=== PATIENT | female | born 1990 | race Caucasian/White ===

== ENCOUNTER 2016-10-27 19:17 | Emergency (ER) | payer MEDICAID ==
--- NOTE | 2016-10-27 20:02 | ED Physician Chart ---
ED Chief Complaint/HPI - Patient Information Date Seen:: 10/27/16 Time Seen:: 19:57 Chief Complaint:: pelvic pain History of Present Illness:: x 2 wks w discomfort at pelvic. maybe some dysuria. no fever. no n/v/d. eating ok. has had some back pain x 2 wks...not severe. no trauma. no vag dc. no irreg vag bleeding. Allergies:: Allergies Allergy/AdvReac Type Severity Reaction Status Date / Time No Known Allergies Allergy Verified 10/27/16 19:47 Vitals:: Vital Signs - 8 hr 10/27/16 19:25 Temp 98.3 F HR 79 RR 18 BP 134/70 O2 Sat % 100 Historian:: Patient ED Review of Systems - Review of Systems General/Constitutional: No fever, No chills, No weight loss, No weakness, No diaphoresis, No edema, No loss of appetite Skin: No skin lesions, No rash, No bruising Head: No headache, No light-headedness Eyes: No loss of vision, No pain, No diplopia ENT: No earache, No nasal drainage, No sore throat, No tinnitus Neck: No neck pain, No swelling, No thyromegaly, No stiffness, No mass noted Cardio Vascular: No chest pain, No palpitations, No PND, No orthopnea, No edema Pulmonary: No SOB, No cough, No sputum, No wheezing GI: No nausea, No vomiting, No diarrhea, No pain, No melena, No hematochezia, No constipation, No hematemesis G/U: Dysuria (?), No dysuria, No frequency, No hematuria Respiratory Therapy Manager: No vaginal discharge, No abnormal vaginal bleed Musculoskeletal: No bone or joint pain, No back pain, No muscle pain Endocrine: No polyuria, No polydipsia Psychiatric: No prior psych history, No depression, No anxiety, No suicidal ideation Hematopoietic: No bruising, No lymphadenopathy Allergic/Immuno: No urticaria, No angioedema Neurological: No syncope, No focal symptoms, No weakness, No paresthesia, No headache, No seizure, No dizziness, No confusion, No vertigo ED Past Medical History - Past Medical History Past Medical History: No significant medical hx Social History: Non Smoker, Alcohol Medication: None Family Medical History - Family Member Mother History Unknown: Yes Ethnicity: Living Status: Still Living Hx Family Cancer: No Hx Family Coronary Artery Disease: No Hx Family Congestive Heart Failure: No Hx Family Hypertension: No Hx Family Stroke: No Hx Family Diabetes: No Hx Family Seizures: No Hx Family AIDS: No Hx Family HIV: No Hx Family COPD: No Hx Family Psychiatric Problems: No Hx Family Tuberculosis: No ED Physical Exam - Physical Examination General/Constitutional: Awake, Well-developed, well-nourished, Alert, No distress, GCS 15, Non-toxic appearing, Ambulatory Other Gen/Cons comments:: alert.ambulatory. nad. calm. wn/wh. no pallor. mmm. Head: Atraumatic Eyes: Lids, conjuctiva normal, PERRL, EOMI Skin: Nl inspection, No rash, No skin lesions, No ecchymosis, Well hydrated, No lymphadenopathy ENMT: External ears, nose nl, Nasal exam nl, Lips, teeth, gums nl Neck: Nontender, Full ROM w/o pain, No JVD, No nuchal rigidity, No bruit, No mass, No stridor Respiratory: Nl effort/Exclusion, Clear to Auscultation, No Wheeze/Rhonchi/Rales Cardio Vascular: RRR, No murmur, gallop, rubs, NL S1 S2 GI: No tenderness/rebounding/guarding, No organomegaly, No hernia, Normal BS's, Nondistended, No mass/bruits, No McBurney tenderness Other GI comments:: mild vague tndr over low pelvis/midline. no obturator or psoas sign. no masses. : No CVA tenderness Extremities: No tenderness or effusion, Full ROM, normal strength in all extremities, No edema, Normal digits & nails Neuro/Psych: Alert/oriented, DTR's symmetric, Normal sensory exam, Normal motor strength, Judgement/insight normal, Mood normal, Normal gait, No focal deficits Misc: normal gait, Normal back, No paraspinal tenderness ED Labs/Radiology/EKG Results - Lab Results Results: Laboratory Tests 10/27/16 10/27/16 10/27/16 19:45 19:45 20:07 WBC 11.0 H D RBC 4.41 Hgb 13.4 Hct 39.6 L MCV 89.7 MCH 30.3 MCHC Differential 33.8 RDW 12.7 Plt Count 227 MPV 8.8 Neutrophils % 66.7 Lymphocytes % 27.0 Monocytes % 4.7 Eosinophils % 1.5 Basophils % 0.1 Sodium Potassium Chloride Carbon Dioxide Anion Gap BUN Creatinine Est GFR ( Amer) Est GFR (Non-Af Amer) BUN/Creatinine Ratio Glucose Calcium Total Bilirubin AST ALT Alkaline Phosphatase Total Protein Albumin Globulin Albumin/Globulin Ratio Urine Source CLEAN C Urine Color YELLOW Urine Clarity CLEAR Urine pH 6.0 Ur Specific [place] 1.025 Urine Protein NEGATIVE Urine Glucose (UA) NEGATIVE Urine Ketones NEGATIVE Urine Blood NEGATIVE Urine Nitrate NEGATIVE Urine Bilirubin NEGATIVE Urine Urobilinogen 0.2 Ur Leukocyte Esterase TRACE H Urine RBC NONE SEEN Urine WBC 2-5 Ur Epithelial Cells NONE SEEN Urine Bacteria NONE SEEN Urine Test NEGATIVE 10/27/16 20:07 WBC RBC Hgb Hct MCV MCH MCHC Differential RDW Plt Count MPV Neutrophils % Lymphocytes % Monocytes % Eosinophils % Basophils % Sodium 135 L Potassium 4.1 Chloride 104 Carbon Dioxide 27.5 Anion Gap 7.6 BUN 14 Creatinine 0.7 Est GFR ( Amer) > 60.0 Est GFR (Non-Af Amer) > 60.0 BUN/Creatinine Ratio 20.0 Glucose 92 Calcium 9.1 Total Bilirubin 0.3 AST 18 ALT 24 Alkaline Phosphatase 50 Total Protein 7.1 Albumin 4.0 Globulin 3.1 Albumin/Globulin Ratio 1.3 Urine Source Urine Color Urine Clarity Urine pH Ur Specific [place] Urine Protein Urine Glucose (UA) Urine Ketones Urine Blood Urine Nitrate Urine Bilirubin Urine Urobilinogen Ur Leukocyte Esterase Urine RBC Urine WBC Ur Epithelial Cells Urine Bacteria Urine Test - Radiology Results Results: us pelvis- rt ovary cyst 3.4x3x2.9cm sz w septation. ? inclusion cyst in uterous. no free fluid. ED Septic Shock - . Is Septic Shock (SBP<90, OR Lactate>4 mmol\L) present?: No - <6hrs of presentation: Vital Signs: Vital Signs - 8 hr 10/27/16 19:25 Temp 98.3 F HR 79 RR 18 BP 134/70 O2 Sat % 100 ED Reassessment (Disposition) - Reassessment Reassessment:: results reviewed w pt. advise fu w pmd for rn resource nurse referral soon. may use tylenol/motrin for pain or ultracet for severe pain. rx ultracet no 15 return if very severe pain or else worse. rx macrobid for poss uti (evidence is not great but sx are concordant w poss uti ) Reassessment Condition:: Improved - Diagnosis Diagnosis:: 1 right ovarian cyst 2 uti - Aftercare/Follow up Instructions Aftercare/Follow-Up Instructions:: Counseled pt & family regarding lab results/ diagnosis & need follow up - Patient Disposition Discharge/Transfer:: Home Condition at Disposition:: Improved
[2016-10-27 20:18] LABS: % BASOPHILS 0.1 % (0.0-2.0); % EOSINOPHILS 1.5 % (0.0-5.0); % MONOCYTES 4.7 % (2.0-10.0); % NEUTROPHILS 66.7 % (40.0-80.0); HEMATOCRIT 39.6 % (41.0-60); HEMOGLOBIN 13.4 gm/dL (12-16); MEAN CELL VOLUME 89.7 fl (81-100); MEAN CORPUSCULAR HEMOGLOBIN 30.3 pg (27.0-31.0); MEAN CORPUSCULAR HGB CONC 33.8 pg (28.0-36.0); MEAN PLATELET VOLUME 8.8 fl; NEUTROPHILE ABSOLUTE 7.3 Th/cmm (1.8-8.0); PLATELET COUNT 227 Th/cmm (150-400); RED BLOOD COUNT 4.41 Mil/cmm (3.80-5.10); RED CELL DISTRIBUTION WIDTH 12.7 % (11.5-20.0)
[2016-10-27 20:22] LABS: URINE BILIRUBIN NEGATIVE (NEGATIVE); URINE BLOOD NEGATIVE (NEGATIVE); URINE GLUCOSE (UA) NEGATIVE (NEGATIVE); URINE KETONE NEGATIVE (NEGATIVE); URINE PROTEIN NEGATIVE (NEGATIVE); URINE UROBILINOGEN 0.2 E.U./dL (0.2 - 1.0)
[2016-10-27 20:30] LABS: SODIUM SERUM 135 mEq/L (136-145)
[2016-10-27 20:31] LABS: ALB/GLOB RATIO 1.3 (1.0-1.8); ALKALINE PHOSPHATASE 50 U/L (34-104); ANION GAP 7.6 (7.0-16.0); BILIRUBIN,TOTAL 0.3 mg/dL (0.3-1.0); BUN - UREA NITROGEN 14 mg/dL (7-25); CALCIUM SERUM 9.1 mg/dL (8.6-10.3); CARBON DIOXIDE 27.5 mEq/L (21.0-31.0); CHLORIDE 104 mEq/L (98-107); CREATININE - SERUM 0.7 mg/dL (0.6-1.2); GLUCOSE 92 mg/dL (70-105); POTASSIUM SERUM 4.1 mEq/L (3.5-5.1); SGOT 18 U/L (13-39); SGPT/ALT 24 U/L (7-52)
[2016-10-27 20:38] LABS: URINE COLOR YELLOW
[2016-10-27 20:41] LABS: URINE BACTERIA NONE SEEN /hpf (NONE SEEN); URINE EPITHELIAL CELLS NONE SEEN /lpf (FEW); URINE RBC NONE SEEN /hpf (0-5)
--- NOTE | 2016-10-28 11:01 | Diagnostic Imaging Report ---
Pelvic ultrasound HISTORY: Pain Transabdominal and transvaginal sonographic technique are utilized. Transabdominal images are limited due to lack of bladder distention. Suboptimal delineation of the uterus on transvaginal images. Complete uterine margins are not delineated. The right ovary measures 3.6 x 1.7 x 2.9 cm. This is associated with several cysts. The largest measures 3.4 x 3.0 x 2.9 cm. Internal septation noted. The left ovary measures 3.4 x 1.7 cm. In no abnormal masses. No free fluid in the pelvis. IMPRESSION: 1. Suboptimal/Limited exam particularly of the uterus and endometrium. 2. Septated right ovarian cystic lesion. A follow-up exam recommended for confirmation of a physiologic basis.
== END 2016-10-27 23:05 | disposition home or self-care (01) ==
LOC: ER 19:17
DX: N83.201 Unspecified ovarian cyst, right side (principal); N39.0 Urinary tract infection, site not specified
CPT/HCPCS: 36415-UA; 76856-TC; 80053-TC; 81001-TC; 81025-TC; 85025-TC

== ENCOUNTER 2016-12-06 16:13 | Emergency (ER) | payer MEDICAID ==
--- NOTE | 2016-12-06 16:34 | ED Physician Chart ---
ED Chief Complaint/HPI - Patient Information Date Seen:: 12/06/16 Time Seen:: 16:25 Chief Complaint:: Recurrent nausea/vomiting since about 7 am today. History of Present Illness:: Brought in by private auto for the above reason. Pt has had recurrent N/V since about 7 am today. Vomitus consists of gastric content. No hematemesis. Last BM at noon today that was loose but nonbloody. No melena or hematochezia. No lightheadedness. No abdominal pain. No fever. No recent travel, antibiotic use or ingestion of contaminated food or liquid. Allergies:: Allergies Allergy/AdvReac Type Severity Reaction Status Date / Time No Known Allergies Allergy Verified 12/06/16 16:14 Vitals:: Vital Signs - 8 hr 12/06/16 16:15 Temp 97.6 F HR 109 RR 16 BP 141/76 O2 Sat % 97 Historian:: Patient Family MD/PCP:: unknown LMP:: 11/22/16 Review:: Nurse's Note Reviewed ED Review of Systems - Review of Systems General/Constitutional: No fever, No weight loss, No weakness, No edema, No loss of appetite Skin: No rash, No bruising Head: No headache, No light-headedness Eyes: No loss of vision, No pain ENT: No earache, No nasal drainage, No sore throat Neck: No neck pain, No swelling, No thyromegaly, No stiffness, No mass noted Cardio Vascular: No chest pain, No palpitations, No edema Pulmonary: No SOB, No cough, No wheezing GI: Nausea, Vomiting, Diarrhea (?), No pain, No melena, No hematochezia, No constipation, No hematemesis G/U: No dysuria, No frequency, No hematuria 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: No vaginal discharge, No abnormal vaginal bleed Musculoskeletal: No bone or joint pain Endocrine: No polyuria, No polydipsia Psychiatric: No prior psych history Hematopoietic: No bruising, No lymphadenopathy Allergic/Immuno: No urticaria, No angioedema Neurological: No syncope, No focal symptoms, No weakness, No paresthesia, No headache, No dizziness, No confusion ED Past Medical History - Past Medical History Past Medical History: No significant medical hx Family History: None Social History: Non Smoker, No Alcohol, No Drug Use, Single, Employed, Other ( lives with her significant other) 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 Surgical 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: None Psychiatricy History: None Medication: None Family Medical History - Family Member Mother History Unknown: Yes Ethnicity: Living Status: Still Living Hx Family Cancer: No Hx Family Coronary Artery Disease: No Hx Family Congestive Heart Failure: No Hx Family Hypertension: No Hx Family Stroke: No Hx Family Diabetes: No Hx Family Seizures: No Hx Family AIDS: No Hx Family HIV: No Hx Family COPD: No Hx Family Psychiatric Problems: No Hx Family Tuberculosis: No ED Physical Exam - Physical Examination General/Constitutional: Awake, Well-developed, well-nourished, Alert, No distress, GCS 15, Non-toxic appearing Other Gen/Cons comments:: Breathes comfortably, speaks clearly, and interacts normally Head: Atraumatic Eyes: Lids, conjuctiva normal, PERRL, EOMI Skin: No rash, No ecchymosis, No lymphadenopathy ENMT: External ears, nose nl, Nasal exam nl, Lips, teeth, gums nl, Oropharynx nl Other ENMT comments:: Mucous membrane is slightly dry. Neck: Nontender, Full ROM w/o pain, No nuchal rigidity, No mass, No stridor Respiratory: Nl effort/Exclusion, Clear to Auscultation, No Wheeze/Rhonchi/Rales Cardio Vascular: RRR, No murmur, gallop, rubs GI: No tenderness/rebounding/guarding, No organomegaly, No hernia, Normal BS's, Nondistended, No mass/bruits, No McBurney tenderness Other GI comments:: Obese but soft. Extremities: No tenderness or effusion, Full ROM, normal strength in all extremities, No edema, Normal digits & nails Neuro/Psych: Alert/oriented (oriented x 3), Mood normal, No focal deficits ED Labs/Radiology/EKG Results - Lab Results Results: Laboratory Tests 12/06/16 12/06/16 12/06/16 16:50 16:50 16:52 WBC 10.7 RBC 4.73 Hgb 14.3 Hct 41.9 MCV 88.7 MCH 30.3 MCHC Differential 34.2 RDW 12.3 Plt Count 220 MPV 8.5 Neutrophils (Manual) 87 H Lymphocytes 8 L Monocytes 5 Platelet Estimate ADEQUATE Platelet Morphology NORMAL RBC Morph Micro Appear NORMAL PT INR PTT (Actin FS) Sodium Potassium Chloride Carbon Dioxide Anion Gap BUN Creatinine Est GFR ( Amer) Est GFR (Non-Af Amer) BUN/Creatinine Ratio Glucose Calcium Total Bilirubin AST ALT Alkaline Phosphatase Total Protein Albumin Globulin Albumin/Globulin Ratio Amylase Lipase Urine Source [place] Urine Color YELLOW Urine Clarity SLIGHTLY HAZY Urine pH 6.0 Ur Specific [place] 1.025 Urine Protein NEGATIVE Urine Glucose (UA) NEGATIVE Urine Ketones NEGATIVE Urine Blood NEGATIVE Urine Nitrate NEGATIVE Urine Bilirubin NEGATIVE Urine Urobilinogen 0.2 Ur Leukocyte Esterase SMALL H Urine RBC 0-2 Urine WBC 10-25 H Ur Epithelial Cells FEW Urine Bacteria 1+ H Urine Mucus FEW Urine Test NEGATIVE 12/06/16 12/06/16 16:52 16:52 WBC RBC Hgb Hct MCV MCH MCHC Differential RDW Plt Count MPV Neutrophils (Manual) Lymphocytes Monocytes Platelet Estimate Platelet Morphology RBC Morph Micro Appear PT 11.0 INR 1.06 PTT (Actin FS) 27.2 Sodium 134 L Potassium 4.3 Chloride 102 Carbon Dioxide 27.2 Anion Gap 9.1 BUN 14 Creatinine 0.7 Est GFR ( Amer) > 60.0 Est GFR (Non-Af Amer) > 60.0 BUN/Creatinine Ratio 20.0 Glucose 104 Calcium 9.1 Total Bilirubin 0.8 AST 17 ALT 18 Alkaline Phosphatase 57 Total Protein 7.2 Albumin 4.0 Globulin 3.2 Albumin/Globulin Ratio 1.3 Amylase 37 Lipase 9 L Urine Source Urine Color Urine Clarity Urine pH Ur Specific [place] Urine Protein Urine Glucose (UA) Urine Ketones Urine Blood Urine Nitrate Urine Bilirubin Urine Urobilinogen Ur Leukocyte Esterase Urine RBC Urine WBC Ur Epithelial Cells Urine Bacteria Urine Mucus Urine Test ED Septic Shock - . Is Septic Shock (SBP<90, OR Lactate>4 mmol\L) present?: No - <6hrs of presentation: Vital Signs: Vital Signs - 8 hr 12/06/16 16:15 Temp 97.6 F HR 109 RR 16 BP 141/76 O2 Sat % 97 ED Reassessment (Disposition) - Reassessment Reassessment:: 1800 Pt feels much better. No abdominal pain or discomfort. No N/V/D. Lab findings have been reviewed with pt. Pt requests to go home now and does not want further observation/management in hospital. Aftercare instructions have been given. Reassessment Condition:: Improved - Diagnosis Diagnosis:: Transient nausea/vomiting/diarrhea c/w viral gastroenteritis. Stable and improved. Urinary tract infection. Stable. - Aftercare/Follow up Instructions Aftercare/Follow-Up Instructions:: Refer to Discharge Instructions Notes:: Bedrest for today. Push oral fluid. Nausea/vomiting/diarrhea instructions given. Clear liquid diet for today. Advance diet as tolerated as directed starting tomorrow. F/U with Dr. Stoner or PCP of pt's choice in one day for recheck. Return to ER immediately if condition worsens or if any further questions/problems. Medication Prescribed:: Bactrim DS one tab po q12h for 7 days. D-14 R-0 - Patient Disposition Discharge/Transfer:: Home Time:: 18:05 Condition at Disposition:: Stable, Improved ED Discharge Plan - Patient Disposition Admit/Discharge/Transfer: PT DISCHARGED HOME Condition at Disposition: Improved Prescriptions: Sulfamethoxazole/TMP [Bactrim Ds] 1 tab PO Q12HR 7 Days #17 tab Instructions: Viral Gastroenteritis, Urinary Tract Infection, [id number] Forms: Work Release Form
[2016-12-06] MEDS ORDERED: Sodium Chloride 0.9% 1,000 ML IV ONE (16:42)
[2016-12-06 16:58] LABS: HEMATOCRIT 41.9 % (41.0-60); HEMOGLOBIN 14.3 gm/dL (12-16); MEAN CELL VOLUME 88.7 fl (81-100); MEAN CORPUSCULAR HEMOGLOBIN 30.3 pg (27.0-31.0); MEAN CORPUSCULAR HGB CONC 34.2 pg (28.0-36.0); MEAN PLATELET VOLUME 8.5 fl; NEUTROPHILE ABSOLUTE 9.7 Th/cmm (1.8-8.0); PLATELET COUNT 220 Th/cmm (150-400); RED BLOOD COUNT 4.73 Mil/cmm (3.80-5.10); RED CELL DISTRIBUTION WIDTH 12.3 % (11.5-20.0); WHITE BLOOD COUNT 10.7 Th/cmm (4.8-10.8)
[2016-12-06 17:14] LABS: URINE BILIRUBIN NEGATIVE (NEGATIVE); URINE BLOOD NEGATIVE (NEGATIVE); URINE GLUCOSE (UA) NEGATIVE (NEGATIVE); URINE KETONE NEGATIVE (NEGATIVE); URINE PROTEIN NEGATIVE (NEGATIVE); URINE UROBILINOGEN 0.2 E.U./dL (0.2 - 1.0)
[2016-12-06 17:16] LABS: INR 1.06 (0.5-1.4)
[2016-12-06 17:18] LABS: ALB/GLOB RATIO 1.3 (1.0-1.8); ALKALINE PHOSPHATASE 57 U/L (34-104); AMYLASE SERUM 37 U/L (29-103); ANION GAP 9.1 (7.0-16.0); BILIRUBIN,TOTAL 0.8 mg/dL (0.3-1.0); BUN - UREA NITROGEN 14 mg/dL (7-25); CALCIUM SERUM 9.1 mg/dL (8.6-10.3); CARBON DIOXIDE 27.2 mEq/L (21.0-31.0); CHLORIDE 102 mEq/L (98-107); CREATININE - SERUM 0.7 mg/dL (0.6-1.2); GLUCOSE 104 mg/dL (70-105); LIPASE 9 U/L (11-82); POTASSIUM SERUM 4.3 mEq/L (3.5-5.1); SGOT 17 U/L (13-39); SGPT/ALT 18 U/L (7-52); SODIUM SERUM 134 mEq/L (136-145)
[2016-12-06 17:27] LABS: URINE COLOR YELLOW
[2016-12-06 17:28] LABS: URINE BACTERIA 1+ /hpf (NONE SEEN); URINE EPITHELIAL CELLS FEW /lpf (FEW); URINE RBC 0-2 /hpf (0-5)
[2016-12-06 17:51] LABS: NEUTROPHILS 87 % (40-80); PLATELET ESTIMATE ADEQUATE (NORMAL); PLATELET MORPHOLOGY NORMAL (NORMAL)
== END 2016-12-06 18:36 | disposition home or self-care (01) ==
LOC: ER 16:13
DX: K52.9 Noninfective gastroenteritis and colitis, unspecified (principal); N39.0 Urinary tract infection, site not specified
CPT/HCPCS: 99285; 96361; 96374; 36415; 85007; 85027; 85610; 87086; 81001; 82150; 81025; 83690; 80053; J2405; J7030

== ENCOUNTER 2017-05-01 23:09 | Emergency (ER) | payer SELFPAY ==
--- NOTE | 2017-05-01 23:52 | ED Physician Chart ---
ED Chief Complaint/HPI - Patient Information Date Seen:: 05/01/17 Time Seen:: 23:41 Chief Complaint:: Vaginal bleeding History of Present Illness:: 26 yo female, , had irregular period lasting 5-7 days, averaging 3-4 pads a day. This morning, more vaginal bleeding occurred and 7 pads were used. Sexually active without being for 2 years. This is first month patient used a new OCPs starting 04/06/17 due to a right ovarian cyst for 2 years. The period started 2 days ago and gradually had more bleeding. The patient had never had this amount of vaginal bleeding before. She also had pelvic crampy pain which was new to her. Allergies:: Allergies Allergy/AdvReac Type Severity Reaction Status Date / Time No Known Allergies Allergy Verified 05/01/17 23:39 ED Past Medical History - Past Medical History Past Medical History: No significant medical hx Social History: Non Smoker, Alcohol, No Drug Use Surgical History: None Family Medical History - Family Member Mother History Unknown: Yes Ethnicity: Living Status: Still Living Hx Family Cancer: No Hx Family Coronary Artery Disease: No Hx Family Congestive Heart Failure: No Hx Family Hypertension: No Hx Family Stroke: No Hx Family Diabetes: No Hx Family Seizures: No Hx Family AIDS: No Hx Family HIV: No Hx Family COPD: No Hx Family Psychiatric Problems: No Hx Family Tuberculosis: No ED Assessment - Assessment General Assessment: Abnormal vaginal bleeding UTI Assessment/Comments:: CBC, CMP, PT/PTT Pelvic u/s Ibuprofen 600mg po x 1 Bactrim DS x 1 D/c home Advil 200mg 2 tabs po q6h x 3 days Bactrim DS bid x 3 days F/u Transformer Inspector or return to ER if symptoms worsen ED Septic Shock - . Is Septic Shock (SBP<90, OR Lactate>4 mmol\L) present?: No
[2017-05-02 00:14] LABS: % BASOPHILS 0.3 % (0.0-2.0); % LYMPHOCYTES 30.3 % (20.0-50.0); % NEUTROPHILS 60.4 % (40.0-80.0); EOSINOPHILE ABSOLUTE 0.2 Th/cmm (0.1-0.4); HEMATOCRIT 37.9 % (41.0-60); HEMOGLOBIN 12.6 gm/dL (12-16); LYMPHOCYTE ABSOLUTE 2.5 Th/cmm (1.5-3.0); MEAN CELL VOLUME 88.7 fl (81-100); MEAN CORPUSCULAR HEMOGLOBIN 29.5 pg (27.0-31.0); MEAN CORPUSCULAR HGB CONC 33.3 pg (28.0-36.0); MEAN PLATELET VOLUME 8.7 fl; MONOCYTE ABSOLUTE 0.6 Th/cmm (0.3-1.0); NEUTROPHILE ABSOLUTE 5.1 Th/cmm (1.8-8.0); PLATELET COUNT 243 Th/cmm (150-400); RED BLOOD COUNT 4.28 Mil/cmm (3.80-5.10); RED CELL DISTRIBUTION WIDTH 12.4 % (11.5-20.0); WHITE BLOOD COUNT 8.4 Th/cmm (4.8-10.8)
[2017-05-02 00:29] LABS: INR 0.98 (0.5-1.4); PROTHROMBIN TIME (TEST) 10.2 SECONDS (9.5-11.5)
[2017-05-02 00:31] LABS: ALB/GLOB RATIO 1.2 (1.0-1.8); ALBUMIN 3.7 gm/dL (3.7-5.3); ALKALINE PHOSPHATASE 38 U/L (34-104); ANION GAP 10.4 (7.0-16.0); BILIRUBIN,TOTAL 0.4 mg/dL (0.3-1.0); BUN - UREA NITROGEN 15 mg/dL (7-25); CALCIUM SERUM 9.2 mg/dL (8.6-10.3); CARBON DIOXIDE 26.5 mEq/L (21.0-31.0); CHLORIDE 105 mEq/L (98-107); CREATININE - SERUM 0.7 mg/dL (0.6-1.2); GFR AFRICAN-AMERICAN > 60.0 ml/min (>90); GFR NON AFRICAN-AMERICAN > 60.0 ml/min; GLUCOSE 103 mg/dL (70-105); POTASSIUM SERUM 3.9 mEq/L (3.5-5.1); SGOT 12 U/L (13-39); SGPT/ALT 13 U/L (7-52); SODIUM SERUM 138 mEq/L (136-145); TOTAL PROTEIN,SERUM 6.9 gm/dL (6.0-8.3)
[2017-05-02 00:43] LABS: URINE MICROSCOPIC INDICATED? YES; URINE SOURCE RANDOM
[2017-05-02 00:57] LABS: URINE BILIRUBIN SMALL (NEGATIVE); URINE BLOOD LARGE (NEGATIVE); URINE GLUCOSE (UA) NEGATIVE (NEGATIVE); URINE KETONE NEGATIVE (NEGATIVE); URINE LEUKOCYTE ESTERASE TRACE (NEGATIVE); URINE NITRATE NEGATIVE (NEGATIVE); URINE PROTEIN 30 mg/dL (NEGATIVE); URINE UROBILINOGEN 0.2 E.U./dL (0.2 - 1.0)
[2017-05-02 01:02] LABS: URINE CLARITY CLOUDY (CLEAR); URINE COLOR OTHER
[2017-05-02 01:04] LABS: URINE BACTERIA FEW /hpf (NONE SEEN); URINE EPITHELIAL CELLS FEW /lpf (FEW); URINE WBC 0-2 /hpf (0-5)
[2017-05-02] MEDS ORDERED: Sulfamethoxazole/TMP 800/160mg Tab PO ONE (01:34)
[2017-05-02] MEDS ORDERED: Sulfamethoxazole/TMP 800/160mg Tab ONE (01:53)
== END 2017-05-02 02:10 | disposition home or self-care (01) ==
LOC: ER 23:09
DX: N93.9 Abnormal uterine and vaginal bleeding, unspecified (principal); N39.0 Urinary tract infection, site not specified
CPT/HCPCS: 36415-UA; 80053-TC; 81001-TC; 81025-TC; 84443-TC; 84703-TC; 85025-TC; 85610-TC; 87086-90; Z7502